=== PATIENT | male | born 1975 | race Caucasian/White ===

== ENCOUNTER 2017-07-27 18:36 | Emergency (ER) | payer OTHER ==
[2017-07-27 18:47] VITALS: RESP 20
--- NOTE | 2017-07-27 19:33 | EDPHY ---
H & P Stated Complaint: cough, SOB for 9 days Time Seen by Provider: 07/27/17 19:32 HPI/ROS: HPI: This is a 41-year-old male who presents with Chief Complaint: cough, SOB for 9 days Location: Chest Quality: Cough Duration: 9 days Signs and Symptoms: no shortness of breath at rest, + shortness of breath on exertion, + nonproductive cough, no chest pain, no palpitations, no lower extremity edema, + wheezing, no orthopnea, no paroxysmal nocturnal dyspnea, no fever, no injury/trauma, no hemoptysis, no carpal pedal spasms Timing: Intermittent, worse at night Severity: Moderate Context: Patient has a history of asthma has an inhaler at home presents with complaints of nonproductive cough for the last 9 days accompanied by worsening shortness of breath. Denies any fever/nasal congestion/rhinorrhea/sore throat/ neck stiffness. Patient has a history of sinus surgery for polyps but reports that they have returned. Patient reports that he has an inhaler at home that he has been use in approximately 3 times a day. Has never had any prior intubations or hospitalizations due to asthma exacerbation. Modifying Factors: Adderall inhaler Comment: ROS: see HPI Constitutional: No fever, no chills, no weight loss Eyes: No blurred vision Respiratory: + shortness of breath, +o cough Cardiovascular: No chest pain, no palpitations, no lower extremity edema Gastrointestinal: No nausea, no vomiting, no diarrhea Genitourinary: No dysuria Extremities: No myalgias Neurologic: No weakness, no numbness Skin: No rashes Hematologic: No bruising, no bleeding MEDICAL/SURGICAL/SOCIAL HISTORY: Medical history: Generally healthy. Does not take any regular medications. Surgical history: Nose surgery Social history: . CONSTITUTIONAL: Well-developed well-nourished middle-aged male, awake and alert , no obvious distress HEENT: Atraumatic and normocephalic, PERRL, EOMI. Tympanic membranes clear. Oropharynx clear, no exudate and moist pink mucosa. Airway patent. No lymphadenopathy. No meningismus. Cardiovascular: Normal S1/S2, regular rate, regular rhythm, without murmur rub or gallop. PULMONARY/CHEST: Symmetrical and nontender. Clear to auscultation bilaterally. Good air movement. No accessory muscle usage. ABDOMEN: Soft, nondistended, nontender, no rebound, no guarding, no peritoneal signs, no masses or organomegaly. No CVAT. EXTREMITIES: 2/2 pulses, strength 5/5, no deformities, no clubbing, no cyanosis or edema. NEUROLOGICAL: no focal neuro deficits. GCS 15. SKIN: Warm and dry, no erythema. no rash. Good capillary refill. Source: Patient Exam Limitations: No limitations - Personal History Current Tetanus/Diphtheria Vaccine: Yes Current Tetanus Diphtheria and Acellular Pertussis (TDAP): Yes Tetanus Vaccine Date: < 10 years - Medical/Surgical History Hx Asthma: No Hx Chronic Respiratory Disease: No Hx Diabetes: No Hx Cardiac Disease: No Hx Renal Disease: No Hx Cirrhosis: No Hx Alcoholism: No Hx HIV/AIDS: No Hx Splenectomy or Spleen Trauma: No Other PMH: nose sx - Social History Smoking Status: Never smoked Constitutional: Initial Vital Signs Temperature (C) 37.1 C 07/27/17 18:45 Heart Rate 92 07/27/17 18:45 Respiratory Rate 20 07/27/17 18:45 Blood Pressure 139/109 H 07/27/17 18:45 O2 Sat (%) 95 07/27/17 18:45 O2 Delivery Mode Room Air Allergies/Adverse Reactions: Penicillins Allergy (Verified 07/27/17 18:44) Home Medications: Medication Instructions Recorded Benzonatate [Tessalon Pearles (RX)] 100 mg PO Q4 PRN #12 cap 07/27/17 Clarithromycin [Biaxin (*)] 500 mg PO BID #14 tab 07/27/17 predniSONE 50 mg PO DAILY #5 tablet 07/27/17 Medical Decision Making - Diagnostics Imaging Results: Imaging Impressions Chest X-Ray 07/27/17 20:01 Impression: Normal. ED Course/Re-evaluation: Vital signs reviewed upon arrival in stable Low yield for pulmonary embolism Given p.o. Prednisone 60 mg and DuoNeb Symptoms greater than 10 days; start antibiotic CXR my read no opacity, no effusion, no pneumothorax, no widened mediastinum This patient was seen under the supervision of my secondary supervising physician. I evaluated care for this patient independently. Differential Diagnosis: Shortness of breath including but not limited to pulmonary infectious process, COPD, asthma, pulmonary embolus and congestive heart failure. - Data Points Medications Given: Discontinued Medications Albuterol/Ipratropium (Duoneb) 3 ml IH EDNOW ONE Stop: 07/27/17 19:39 Last Admin: 07/27/17 19:44 Dose: 3 ml Prednisone (Prednisone) 60 mg PO EDNOW ONE Stop: 07/27/17 19:39 Last Admin: 07/27/17 19:44 Dose: 60 mg Departure - Departure Disposition: Home, Routine, Self-Care Clinical Impression: Nasal polyps, Acute bacterial bronchitis Asthma exacerbation Qualifiers: Asthma severity: mild Asthma persistence: intermittent Qualified Code(s): J45.21 - Mild intermittent asthma with (acute) exacerbation Condition: Good Instructions: Acute Bronchitis (ED) Referrals: [facility],. [Clinic] - As per Instructions Prescriptions: Benzonatate [Tessalon Pearles (RX)] 100 mg PO Q4 PRN #12 cap PRN Reason: Cough, Moderate Clarithromycin [Biaxin (*)] 500 mg PO BID #14 tab predniSONE 50 mg PO DAILY #5 tablet
[2017-07-27] MEDS ORDERED: IPRATROPIUM/ALBUTEROL 3 ML DEYVIAL IH ONE (19:38)
[2017-07-27] MEDS ORDERED: predniSONE 20 MG TAB PO ONE (19:38)
[2017-07-27] MEDS ORDERED: IPRATROPIUM/ALBUTEROL 3 ML DEYVIAL ONE (19:39)
[2017-07-27] MEDS ORDERED: predniSONE 20 MG TAB ONE (19:39)
[2017-07-27 20:44] VITALS: BP 136/77; PULSE 96; TEMP 97.7; O2SAT 96
== END 2017-07-27 20:44 | disposition home or self-care (01) ==
DX: J33.9 Nasal polyp, unspecified (principal); J20.8 Acute bronchitis due to other specified organisms; B96.89 Other specified bacterial agents as the cause of diseases classified elsewhere; J45.21 Mild intermittent asthma with (acute) exacerbation
CPT/HCPCS: J7512

== ENCOUNTER 2017-12-13 10:47 | Observation (INO) | payer OTHER ==
[2017-12-13] MEDS ORDERED: IOPAMIDOL (ISOVUE-300) 100 ML BTL ONE (10:53)
[2017-12-13] MEDS ORDERED: CLINDAMYCIN 900 MG/DEXTROSE 50 ML IV ONE (11:20)
[2017-12-13] MEDS ORDERED: ONDANSETRON 4 MG/2 ML VIAL IVP PRN (11:21)
[2017-12-13] MEDS ORDERED: NS 1,000 ML IV SCH (11:30)
[2017-12-13] MEDS ORDERED: LR 1,000 ML IV ONE (13:49)
[2017-12-13] MEDS ORDERED: CLINDAMYCIN 900 MG/DEXTROSE/50 ML BAG IV ONE (13:58)
[2017-12-13] MEDS ORDERED: BUPIVACAINE/EPI 0.5% 30 ML SDV ONE (14:02)
[2017-12-13] MEDS ORDERED: MIDAZOLAM 2 MG/2 ML VIAL ONE (14:37)
[2017-12-13] MEDS ORDERED: fentaNYL 100 MCG/2 ML INJ ONE ×2 (14:37→15:55)
[2017-12-13] MEDS ORDERED: PROPOFOL 200 MG/20 ML VIAL ONE (14:38)
[2017-12-13] MEDS ORDERED: ROCURONIUM 50 MG/5 ML VIAL ONE (14:51)
[2017-12-13] MEDS ORDERED: METOCLOPRAMIDE 10 MG/2 ML VIAL ONE (14:51)
[2017-12-13] MEDS ORDERED: ONDANSETRON 4 MG/2 ML VIAL ONE (14:51)
--- NOTE | 2017-12-13 14:59 | PDANEPAE ---
ANE Past Medical History - Cardiovascular History Hx Hypertension: No Hx Arrhythmias: No Hx Chest Pain: No Hx Coronary Artery / Peripheral Vascular Disease: No Hx CHF / Valvular Disease: No Hx Palpitations: No - Pulmonary History Hx Oxygen in Use at Home: No Hx Sleep Apnea: No - Neurologic History Hx Cerebrovascular Accident: No Hx Seizures: No Hx Dementia: No - Endocrine History Hx Diabetes: No - Renal History Hx Renal Disorders: No - Liver History Hx Hepatic Disorders: No - Neurological & Psychiatric Hx Hx Neurological and Psychiatric Disorders: No - Cancer History Hx Cancer: No - Congenital Disorder History Hx Congenital Disorders: No - GI History Hx Gastrointestinal Disorders: No - Surgical History Prior Surgeries: ENT procedure 2016 ANE Review of Systems Review of Systems: - Exercise capacity METS (RN): 5 METS ANE Patient History - Allergies Allergies/Adverse Reactions: Penicillins Allergy (Verified 07/27/17 18:44) - NPO status NPO Since - Liquids (Date): 12/12/17 NPO Since - Solids (Date): 12/12/17 - Smoking Hx Smoking Status: Never smoked - Family Anes Hx Family Hx Anesthesia Complications: none known ANE Labs/Vital Signs - Vital Signs Blood Pressure: 121/89 Heart Rate: 72 Respiratory Rate: 14 O2 Sat (%): 98 Height: 177.8 cm Weight: 91.626 kg ANE Physical Exam - Airway Mallampati Score: Class 2 - ASA Status ASA Status: I ANE Anesthesia Plan Anesthesia Plan: general endotracheal anesthesia Urgent/Emergent Case: Netta daigle completed preop but documented later for safe timely pt care
[2017-12-13] MEDS ORDERED: SUGAMMADEX SODIUM 200 MG/2 ML VIAL IVP ONE (15:23)
[2017-12-13] MEDS ORDERED: NALOXONE HCL 0.4 MG/ML INJ IVP PRN (15:41)
[2017-12-13] MEDS ORDERED: LR 500 ML IV PRN (15:41)
[2017-12-13] MEDS ORDERED: PROMETHAZINE HCL 25 MG/ML INJ IVP PRN (15:41)
[2017-12-13] MEDS ORDERED: HYDROmorphONE/DILAUDID 1 MG/ML INJ IVP PRN (15:41)
--- NOTE | 2017-12-13 15:43 | POSTANESTH ---
Post Anesthetic Evaluation Cardiovascular Status: Normal, Stable Respiratory Status: Normal, Stable Level of Consciousness/Mental Status: Can Participate in Eval Pain Control: Adequate, Prn Tx Ordered Nausea/Vomiting Control: Adequate, Prn Tx Ordered Complications Possibly Related to Anesthesia: None Noted
[2017-12-13] MEDS: fentaNYL 100 MCG/2 ML INJ IVP PRN ×2 (15:58→16:07)
--- NOTE | 2017-12-13 16:49 | POSTOPPROG ---
Post Op Note Date of Operation: 12/13/17 Surgeon: Herman Lock Anesthesiologist: Dylan Murillo Anesthesia: GET(General Endotracheal) Pre-op Diagnosis: incarcerated ventral hernia Post-op Diagnosis: same Procedure: open repair of incarcerated supraumbilical ventral hernia Findings: incarcerated fat Inf/Abcess present in the surg proc area at time of surgery?: No EBL: Minimal Complications: none
[2017-12-13] MEDS: HYDROmorphONE/DILAUDID 1 MG/ML INJ IVP PRN ×4 (17:27→22:43)
[2017-12-14] MEDS: HYDROmorphONE/DILAUDID 1 MG/ML INJ IVP PRN ×2 (03:39→07:09)
[2017-12-14 08:07] VITALS: BP 131/79
[2017-12-14] MEDS ORDERED: OXYCODONE/APAP 5/325 TAB PO PRN (08:29)
--- NOTE | 2017-12-14 08:35 | SOAPPROG ---
SOAP Progress Note Assessment/Plan: 42 Y M s/p open incarcerated VH repair, POD#1. Regular diet. Percocet. D/c to home. S: Pain over night. Better this am. Hungry. O: alert, nad ctab rrr abd soft, inc cdi, +BS 12/14/17 08:34 Objective: Vital Signs Temp Pulse Resp BP Pulse Ox 37.0 C 73 16 131/79 H 96 12/14/17 08:00 12/14/17 08:00 12/14/17 08:00 12/14/17 08:00 12/14/17 08:00 12/13/17 12/14/17 12/15/17 05:59 05:59 05:59 Intake Total 1740 Output Total 5 Balance 1735 ICD10 Worksheet Patient Problems: Problems Problem Status Onset Nasal polyps Acute
--- NOTE | 2017-12-15 19:35 | GOP ---
[f rep st] OPERATIVE REPORT DATE OF OPERATION: 12/13/2017 SURGEON: Herman Lock MD RECYCLE DRIVER: There was no assistant vice president. ANESTHESIOLOGIST: Shahriar Murillo MD PREOPERATIVE DIAGNOSIS: Incarcerated ventral hernia. POSTOPERATIVE DIAGNOSIS: Incarcerated ventral hernia. PROCEDURE PERFORMED: Open repair of incarcerated supraumbilical ventral hernia. FINDINGS: Patient was found to have a 3 cm defect with incarcerated preperitoneal fat. DESCRIPTION OF PROCEDURE: The patient was taken to the operating room where he received a satisfacto ry general endotracheal anesthesia by Dr. Murillo, placed in supine position, prepped and draped in usual sterile fashion. A vertical incision was made over the palpable mass. Dissection was carried down through the subcutaneous tissue and the hernia sac was dissected free from surrounding subcutane ous tissue and dissected back to the fascia. The sac was opened at the fascial level and seen to con tain primarily fatty tissue. This was amputated with electrocautery. Hemostasis was assured. The d efect was completely exposed. This was then closed in a [id number] 2-layer fashion with interru pted 0 Ethibond sutures. Prior to the closure, a preperitoneal subfascial piece of mesh was placed a nd anchored in place with interrupted 0 Ethibond sutures around the periphery of the defect, approxim ately 2 cm back from the edges. The repair was then completed in a 2-layer fashion as noted with int errupted 0 Ethibond mattress sutures. The wound was infiltrated with 0.5% Marcaine, subcu was closed with 3-0 Vicryl and the skin with a 4-0 Monocryl subcuticular stitch. He tolerated the procedure we ll, was taken to the recovery room in good condition. Copy requested to: Dr. Angelo /[id number]/MODL
--- NOTE | 2017-12-20 11:19 | GDS ---
[f rep st] DISCHARGE SUMMARY DISCHARGE DIAGNOSIS: Incarcerated supraumbilical ventral hernia. PROCEDURES: Open repair of incarcerated supraumbilical ventral hernia. SPECIAL TESTS: CT scan of the abdomen and pelvis showed a small, uncomplicated periumbilical fat-con taining hernia, also asymmetrical left inguinal fat without hernia and nonobstructive right nephrolit hiasis. Please see report for details. HOSPITAL COURSE: The patient is a 42-year-old male who came to our clinic with complaints of a very painful upper midline bulge. He was found to have an incarcerated hernia. He was in a great deal of pain, and so Dr. Lock sent him for a CT scan to ensure that no other process was going on to cause such pain. Ultimately, the CT identified the hernia. No other problems. He went to the operating r oom the same day and underwent open repair of his hernia. The procedure was uncomplicated, and he to lerated it well. The patient's postoperative course was relatively uneventful. He did have some problems with pain co ntrol. He was discharged to home in stable condition with plans for outpatient followup. Limitation s were discussed. /[id number]/MODL
== END 2017-12-14 11:50 | disposition home or self-care (01) ==
LOC: FIMAGING 10:47 → F3E 10:52
PROVIDERS: ADMIT Surgery; ATTEND Surgery
PROC: 0WUF0JZ Supplement Abdominal Wall with Synthetic Substitute, Open Approach (ICD-10-PCS; principal; 2017-12-13 16:00)
DX: K43.6 Other and unspecified ventral hernia with obstruction, without gangrene (principal)
CPT/HCPCS: 49561; 74177; G0378; C1781; J1170; J2250; J2405; J2704; J2765; J3010; Q9967